=== PATIENT | male | born 1975 | race African-American/Black ===

== ENCOUNTER 2018-05-23 11:30 | Outpatient (CLI) | payer MEDICAID ==
[2018-05-23] MEDS ORDERED: GADOBUTROL 10 ML VIAL IVP ONE (11:53)
[2018-05-23] MEDS ORDERED: NALOXONE HCL 0.4 MG/ML INJ IVP PRN (11:59)
[2018-05-23] MEDS ORDERED: MIDAZOLAM 2 MG/2 ML VIAL IVP PRN (11:59)
[2018-05-23] MEDS ORDERED: fentaNYL 100 MCG/2 ML INJ IVP PRN (11:59)
[2018-05-23] MEDS ORDERED: FLUMAZENIL 0.5 MG/5 ML MDV IVP PRN (11:59)
[2018-05-23] MEDS ORDERED: NS 1,000 ML IV SCH (12:00)
--- NOTE | 2018-05-23 12:48 | PDGENHP ---
History & Physical Chief Complaint: movement disorder and needs mri Cardiorespiratory Assessment: regular heartrate, lungs clear
--- NOTE | 2018-05-23 12:48 | PDPROPOC ---
Sedation Plan of Care Sedation Plan of Care: vital signs stable, mental status noted, patient educated of risks, benefits, alternatives, patient can tolerate sedation ASA Classification: ASA 1 Planned drugs: fentanyl, midazolam Mallampati Score: Class 1 Mallampati Reference Image: Patient passed 3-3-2 rule?: Yes
[2018-05-23 15:11] VITALS: BP 114/74
== END 2018-05-23 15:23 | disposition home or self-care (01) ==
LOC: FIMAGING 11:30
PROVIDERS: ATTEND Psychiatry & Neurology Neurology
DX: R94.02 Abnormal brain scan (principal); R06.09 Other forms of dyspnea; G24.9 Dystonia, unspecified
CPT/HCPCS: A9585; J2250; J2310; J3010

== ENCOUNTER 2018-12-17 11:25 | Emergency (ER) | payer MEDICAID ==
[2018-12-17 11:31] VITALS: BP 123/73
--- NOTE | 2018-12-17 11:47 | EDPHY ---
H & P Time Seen by Provider: 12/17/18 11:33 HPI/ROS: CHIEF COMPLAINT: Left ankle pain HISTORY OF PRESENT ILLNESS: 43-year-old male complaining of acute left lateral ankle pain after accidentally rolled his foot this morning. He is unable to bear weight secondary to pain to the lateral aspect of the ankle. No foot or 5th metatarsal pain. No proximal tibia or fibula pain. No fall from height. No calcaneus pain. PHYSICAL EXAM (Prior to examination, patient consented to physical exam, hands were washed and my usual and customary physical exam procedures followed) 1) GENERAL: Well-developed, well-nourished, alert and oriented. Appears to be in no acute distress. 2) HEAD: Normocephalic 3) HEENT: Pupils equal, round, reactive to light bilaterally. 4) LUNGS: Breathing comfortably. 5) MUSCULOSKELETAL: Tender to palpation with soft tissue swelling to the left lateral malleolus. proximal tibia and fibula nontender .5th MT nontender negative Millan test, compartments soft 6) SKIN: Intact 7) VASCULAR: DP,PT pulses and cap refill present and brisk DIFFERENTIAL DIAGNOSIS: in no particular order including but not limited to fracture, sprain, compartment syndrome Procedure: Crutches indications for crutch use discussed with patient. Patient fitted for crutches by ER staff. Observed ambulating with crutches. I think the patient has the capacity to safely use crutches. Usual and customary crutch walking precautions provided Procedure: Splint A nj boot splint was applied by ER rfid technician. After application of the splint I returned and re-examined the patient. The splint was adequately immobilizing the joint and distal to the splint the patient's circulation and sensation were intact. Patient shows no signs of compartment syndrome. Was given orthopedic precautions. Smoking Status: Former smoker Constitutional: Initial Vital Signs Temperature (C) 36.8 C 12/17/18 11:29 Heart Rate 81 12/17/18 11:29 Respiratory Rate 16 12/17/18 11:29 Blood Pressure 123/73 H 12/17/18 11:29 O2 Sat (%) 94 12/17/18 11:29 O2 Delivery Mode Room Air Allergies/Adverse Reactions: No Known Allergies Allergy (Verified 12/17/18 11:28) Home Medications: Medication Instructions Recorded Seroquel 800 mg PO HS 07/15/14 Levothyroxine 75 mcg PO DAILY 04/28/16 CLONAZEPAM 1 mg PO BID 09/17/17 Testosterone IM [Testosterone 200 mg IM 09/17/17 100mg/ml IM inj (*)] Doxepin HCl 25 mg PO HS 05/21/18 Fluocinolone 0.025% TP BID 05/21/18 Lexapro 10 MG 10 mg PO DAILY 05/21/18 Meloxicam 15 mg PO DAILY 05/21/18 Omeprazole 20 mg PO DAILY 05/21/18 Quetiapine Fumarate 100 mg PO HS 05/21/18 Valium 5 MG (*) 5 mg PO BID PRN 05/21/18 Vistaril 50MG (RX) 50 mg PO Q6HRS PRN 05/21/18 MDM/Departure - MDM Imaging Results: Imaging Impressions Ankle X-Ray 12/17/18 11:34 Impression: Ankle sprain. No acute fracture. Images reviewed myself ED Course/Re-evaluation: Re-evaluation with serial exams. Discussed his imaging results. Discussed limitations of x-ray. Informed that non osseous injury not ruled out. No evidence of compartment syndrome. My usual and customary orthopedic precautions instructions and referral information provided. Care of patient under supervision of primary Supervising physician Dr Larson . - Depart Disposition: Home, Routine, Self-Care Clinical Impression: Left ankle sprain Qualifiers: Encounter type: initial encounter Involved ligament of ankle: unspecified ligament Qualified Code(s): S93.402A - Sprain of unspecified ligament of left ankle, initial encounter Condition: Good Instructions: Ankle Sprain (ED) Additional Instructions: Return to the ER immediately if you experience discoloration, have worsening pain, numbness, tingling, or any other symptoms that concern you. If you received x-rays in the emergency department today, be advised, that ligamentous , tendon, muscular, and other non-bony injury cannot be fully ruled out. Try to keep your affected extremity elevated above the level of your chest, and keep cold packs on the affected area, for the next 48 hours. Referrals: Radha Cates MD [Medical Doctor] - 5-7 days, call for appt.
== END 2018-12-17 12:09 | disposition home or self-care (01) ==
DX: S93.402A Sprain of unspecified ligament of left ankle, initial encounter (principal); X50.1XXA Overexertion from prolonged static or awkward postures, initial encounter
CPT/HCPCS: L4386